=== PATIENT | female | born 1990 | race Caucasian/White ===

== ENCOUNTER 2022-01-22 03:13 | Emergency (ER) | payer OTHER ==
[2022-01-22 03:51] LABS: HEMOGLOBIN 14.3 gm/dl (12.3-15.3); RED BLOOD COUNT 6.24 M/UL (4.00-5.10); WHITE BLOOD COUNT 19.6 K/UL (4.5-11.0)
[2022-01-22 04:17] LABS: BUN/CREATININE RATIO 17 (0-10)
[2022-01-22] MEDS ORDERED: MACROBID 100 M100 MG PO (09:37)
== END 2022-01-22 09:39 | disposition home or self-care (01) ==
LOC: ER1 03:13
PROVIDERS: Student in an Organized Health Care Education/Training Program
DX: E86.0 Dehydration (principal); R11.2 Nausea with vomiting, unspecified
CPT/HCPCS: 71045; 80053; 81001; 83690; 84703; 85025; 93005; 96374; 96376; 99284; J2405; J7120; Q9967